=== PATIENT | male | born 1950 | race Caucasian/White ===

== ENCOUNTER → 2017-10-17 | Outpatient (CLI) | payer OTHER ==
--- NOTE | 2017-10-17 11:37 | VAS ---
HISTORY: Right leg pain. Previous deep vein thrombosis.. Study: Right lower extremity venous vascular examination: Multiplanar ultrasonographic examination of the deep venous system of the right lower extremity was performed using color, grayscale and pulse d Doppler imaging. Augmentation and compression techniques utilized. Comparison: None Findings: The common femoral vein, greater saphenous junction, superficial femoral vein and popliteal vein show normal color flow. No intraluminal filling defects are identified. The common femoral vein, superf icial femoral vein and popliteal vein show normal augmentation and compression. IMPRESSION: 1. No evidence of deep venous thrombosis involving the right lower extremity. Reported By:
== END | disposition home or self-care (01) ==
LOC: RAD 09:00
DX: R10.30 Lower abdominal pain, unspecified (principal)
CPT/HCPCS: 93971